=== PATIENT | male | born 1945 | race Caucasian/White ===

== ENCOUNTER 2020-07-16 16:03 | Observation (INO) ==
[2020-07-16] MEDS ORDERED: Isovue-370 500 ML BOTTLE IVP ONE (16:12)
[2020-07-16 16:46] LABS: Hematocrit 28.9 % (37.5-50.1); Mean Corpuscular HGB Conc 31.1 g/dL (31.6-35.5); Mean Corpuscular Hemoglobin 31.4 pg (28.0-33.3); Mean Corpuscular Volume 100.7 fL (83.0-100.0); Mean Platelet Volume 10.7 fL (9.4-12.4); Platelet Count 187 K/mcL (140-400); Red Blood Count 2.87 M/mcL (4.19-5.50); Red Cell Distribution Width 14.3 % (11.5-14.5); White Blood Count 9.1 K/mcL (4.3-11.1)
[2020-07-16 16:55] LABS: INR 1.2; Prothrombin Time 13.7 Seconds (9.4-12.1)
[2020-07-16 16:58] LABS: Activated Partial Thrombo Time 28.4 Seconds (26.0-36.0)
[2020-07-16 17:13] LABS: Calcium 8.8 mg/dL (8.6-10.3); Potassium 4.7 mEq/L (3.5-5.1); Troponin I 0.05 ng/mL (< 0.04)
[2020-07-16] MEDS ORDERED: Perflutren Lipid Microsphere 1.3 ML in 0.9 % Sodium Chloride 8.7 ML IVP PRN (18:49)
[2020-07-16] MEDS ORDERED: Naloxone 0.4 MG/ML INJ IVP PRN (18:58)
[2020-07-16] MEDS ORDERED: *HR* Dextrose 50 % in Water (Vial) 50 ML VIAL IVP PRN (20:13)
[2020-07-16] MEDS ORDERED: Dextrose Gel 15 GM/37.5 ML TUBE PO PRN ×2 (20:13)
[2020-07-16] MEDS ORDERED: D5% in Water 1,000 ML IVC PRN (20:13)
[2020-07-16] MEDS ORDERED: Furosemide 20 MG TABLET PO PRN (20:38)
[2020-07-16] MEDS ORDERED: Insulin LISPRO 300 UNITS/3 ML VIAL SQ SCH (21:00)
[2020-07-16] MEDS: Aspirin Enteric Coated 81 MG Tablet PO SCH (22:16)
[2020-07-16] MEDS: Verapamil ER (24 HR) 240 MG TABLET.ER PO SCH (22:17)
[2020-07-16] MEDS: hydrALAZINE 25 MG TABLET PO SCH (22:17)
[2020-07-17 05:12] LABS: Hematocrit 25.6 % (37.5-50.1); Hemoglobin 8.1 g/dL (12.9-16.9); Mean Corpuscular HGB Conc 31.6 g/dL (31.6-35.5); Mean Corpuscular Volume 98.1 fL (83.0-100.0); Mean Platelet Volume 10.7 fL (9.4-12.4); Platelet Count 180 K/mcL (140-400); Red Blood Count 2.61 M/mcL (4.19-5.50); Red Cell Distribution Width 14.3 % (11.5-14.5); White Blood Count 7.8 K/mcL (4.3-11.1)
[2020-07-17 05:15] LABS: INR 1.2; Prothrombin Time 14.3 Seconds (9.4-12.1)
[2020-07-17 05:19] LABS: Estimated Average Glucose 123 mg/dl
[2020-07-17 05:24] LABS: Calcium 8.5 mg/dL (8.6-10.3); Chol/HDL Ratio 2.5 (0-4.9); Magnesium 2.1 mg/dL (1.6-2.6); Phosphorous 4.5 mg/dL (2.7-4.5)
[2020-07-17] MEDS ORDERED: *HR* Heparin 5,000 UNIT/ML VIAL SQ SCH (06:00)
[2020-07-17] MEDS ORDERED: Levothyroxine 25 MCG TABLET PO SCH (06:30)
[2020-07-17] MEDS: Insulin LISPRO 300 UNITS/3 ML VIAL SQ SCH ×2 (08:03→12:08)
[2020-07-17] MEDS ORDERED: Insulin DETEMIR 100 UNIT/ML X5UNITS SQ SCH ×2 (09:00→21:00)
[2020-07-17] MEDS ORDERED: Cholecalciferol (D-3) 1,000 UNIT (25MCG) TABLET PO SCH (09:00)
[2020-07-17] MEDS ORDERED: lisinopriL 20 MG TABLET PO SCH (09:00)
[2020-07-17] MEDS: Aspirin Enteric Coated 81 MG Tablet PO SCH (09:50)
[2020-07-17] MEDS: Verapamil ER (24 HR) 240 MG TABLET.ER PO SCH (09:50)
[2020-07-17 11:29] VITALS: BP 166/66
[2020-07-17] MEDS: hydrALAZINE 25 MG TABLET PO SCH (12:08)
== END 2020-07-17 14:35 | disposition home or self-care (01) ==
LOC: EMEROOARM 16:03 → 3BNU 16:03 → SUATTDRO 18:50 → 3BNU 18:56
PROVIDERS: ADMIT Internal Medicine; ATTEND Internal Medicine